=== PATIENT | female | born 2000 | race Caucasian/White ===

== ENCOUNTER → 2019-03-26 11:30 | Outpatient (BNVA) | payer BC, MEDICAID, SELFPAY | PROVIDERS: Visit Provider Obstetrics & Gynecology | DX: Z34.01 Encounter for supervision of normal first pregnancy, first trimester (principal) | CPT/HCPCS: 80307; 84315; 85027; 86592; 86762; 86803; 86850; 86900; 87086; 87340 ==

== ENCOUNTER → 2019-04-20 11:47 | Outpatient (BNVA) | payer BC, SELFPAY | PROVIDERS: Visit Provider Obstetrics & Gynecology | DX: Z34.01 Encounter for supervision of normal first pregnancy, first trimester (principal) | CPT/HCPCS: 84315; 87491; 87591 ==

== ENCOUNTER → 2019-05-26 08:14 | Outpatient (BNVA) | payer MEDICAID, SELFPAY | PROVIDERS: Referring Provider Obstetrics & Gynecology; Visit Provider Obstetrics & Gynecology | DX: Z36.89 Encounter for other specified antenatal screening (principal); Z3A.19 19 weeks gestation of pregnancy; O32.1XX0 Maternal care for breech presentation, not applicable or unspecified | CPT/HCPCS: 76805 ==

== ENCOUNTER → 2019-06-02 09:18 | Outpatient (BNVA) | payer MEDICAID, SELFPAY | PROVIDERS: Visit Provider Obstetrics & Gynecology | DX: Z01.89 Encounter for other specified special examinations (principal) | CPT/HCPCS: 84315 ==

== ENCOUNTER → 2019-06-24 10:42 | Outpatient (BNVA) | payer MEDICAID, SELFPAY | PROVIDERS: Visit Provider Obstetrics & Gynecology | DX: Z34.02 Encounter for supervision of normal first pregnancy, second trimester (principal); Z04.89 Encounter for examination and observation for other specified reasons | CPT/HCPCS: 81000 ==

== ENCOUNTER → 2019-07-08 08:06 | Outpatient (BNVA) | payer BC, MEDICAID, SELFPAY | PROVIDERS: Visit Provider Obstetrics & Gynecology | DX: Z36.89 Encounter for other specified antenatal screening (principal); Z3A.27 27 weeks gestation of pregnancy | CPT/HCPCS: 76816 ==

== ENCOUNTER → 2019-07-21 10:07 | Outpatient (BNVA) | payer MEDICAID, SELFPAY | PROVIDERS: Visit Provider Obstetrics & Gynecology | DX: Z34.03 Encounter for supervision of normal first pregnancy, third trimester (principal); Z04.89 Encounter for examination and observation for other specified reasons | CPT/HCPCS: 81000; 82950; 85027 ==

== ENCOUNTER → 2019-08-04 08:45 | Outpatient (BNVA) | payer MEDICAID, SELFPAY | PROVIDERS: Visit Provider Obstetrics & Gynecology | DX: Z34.02 Encounter for supervision of normal first pregnancy, second trimester (principal) | CPT/HCPCS: 81000 ==

== ENCOUNTER → 2019-08-18 10:00 | Outpatient (BNVA) | payer MEDICAID, SELFPAY | PROVIDERS: Visit Provider Obstetrics & Gynecology | DX: O99.013 Anemia complicating pregnancy, third trimester (principal) | CPT/HCPCS: 81000 ==

== ENCOUNTER → 2019-09-01 09:59 | Outpatient (BNVA) | payer MEDICAID, SELFPAY | PROVIDERS: Visit Provider Obstetrics & Gynecology | DX: Z34.02 Encounter for supervision of normal first pregnancy, second trimester (principal) | CPT/HCPCS: 81000 ==

== ENCOUNTER → 2019-09-15 09:25 | Outpatient (BNVA) | payer BC, MEDICAID, SELFPAY | PROVIDERS: Visit Provider Obstetrics & Gynecology | DX: Z34.90 Encounter for supervision of normal pregnancy, unspecified, unspecified trimester (principal) | CPT/HCPCS: 81000; 87081 ==

== ENCOUNTER → 2019-09-23 07:56 | Outpatient (BNVA) | payer MEDICAID, SELFPAY | PROVIDERS: Visit Provider Nurse Practitioner Women's Health | DX: Z34.90 Encounter for supervision of normal pregnancy, unspecified, unspecified trimester (principal) | CPT/HCPCS: 81000 ==

== ENCOUNTER → 2019-09-30 10:18 | Outpatient (BNVA) | payer BC, MEDICAID, SELFPAY | PROVIDERS: Visit Provider Obstetrics & Gynecology | DX: O98.813 Other maternal infectious and parasitic diseases complicating pregnancy, third trimester; O99.013 Anemia complicating pregnancy, third trimester; Z3A.38 38 weeks gestation of pregnancy | CPT/HCPCS: 81000 ==

== ENCOUNTER → 2019-10-06 08:41 | Outpatient (BNVA) | payer BC, MEDICAID, SELFPAY | PROVIDERS: Visit Provider Obstetrics & Gynecology | DX: O99.013 Anemia complicating pregnancy, third trimester (principal); Z3A.39 39 weeks gestation of pregnancy | CPT/HCPCS: 81000 ==

== ENCOUNTER 2019-10-09 19:09 | Inpatient (IN) | payer BC, MEDICAID, SELFPAY ==
[2019-10-09] VITALS (17 sets, daily range): BP systolic 0–139; BP diastolic 0–72; PULSE 81–120; RESP 17–18; TEMP 36.7–37.1; BMI 30.5
[2019-10-09 20:56] LABS: Basophils # 0.1 10^3/uL (0.0-0.1); Basophils % 0.5 %; Eosinophils # 0.1 10^3/uL (0.0-0.8); Eosinophils % 0.8 %; Hematocrit 29.9 % (37.0-47.0); Hemoglobin 9.5 g/dL (11.5-15.3); Lymphocytes # 2.2 10^3/uL (1.5-6.5); Lymphocytes % 17.4 %; Mean Corpuscular HGB Conc 31.8 g/dL (30.0-36.0); Mean Corpuscular Hemoglobin 27.5 pg (28.0-34.0); Mean Corpuscular Volume 86.7 fL (81-99); Mean Platelet Volume 9.2 fL (7.4-10.4); Monocytes % 7.8 %; Neutrophils # 9.17 10^3/uL (1.8-8.0); Neutrophils % 72.7 %; Nucleated Red Blood Cells % 0 %; Platelet Count 373 10^3/cmm (130-400); Red Blood Count 3.45 10^6/uL (4.1-5.3); Red Cell Distribution Width 12.8 % (12.1-15.1); White Blood Count 12.6 10^3/uL (4.5-13.0)
[2019-10-09] MEDS: lactated ringers 1,000 ML 999 ML IV (21:00)
[2019-10-09] MEDS: ampicillin 2,000 MG in sodium chloride 0.9% (plus) 50 ML 100 MG IV (21:37)
[2019-10-09] MEDS: oxytocin 30 UNIT/500 ML BAG IV (22:24)
[2019-10-10] VITALS (147 sets, daily range): BP systolic 0–187; BP diastolic 0–115; PULSE 65–138; RESP 12–18; TEMP 36.5–37; O2SAT 86–99
[2019-10-10] MEDS: ampicillin 1,000 MG in sodium chloride 0.9% (plus) 50 ML 100 MG IV ×5 (00:57→17:26)
[2019-10-10] MEDS: lactated ringers 1,000 ML 100 ML IV ×2 (03:35→21:30)
[2019-10-10] MEDS: oxytocin 30 UNIT/500 ML BAG IV (08:10)
[2019-10-10] MEDS: lactated ringers 1,000 ML 999 ML IV ×2 (12:40→18:55)
--- NOTE | 2019-10-10 13:59 | P.ANESASSM_ITS ---
Pre-Anesthetic Assessment Pre-Anesthetic Assessment: Height/Weight: Height 1.7 m Weight 88.451 kg Temp Pulse Resp BP 98.2 F 86 16 135/82 10/10/19 11:25 10/10/19 13:48 10/10/19 11:25 10/10/19 13:48 Preop Diagnosis: labor Proposed Procedure: epidural Was Beta Chantell taken within 24 hours: N/A Last Intake: 07:00 Social: Social History: No alcohol and No tobacco Exam: Pre-Anes Outpt Exam: alert, oriented x 3, clear to auscultation bilaterally and regular rate & rhythm Airway: Submandibular: WNL Cervical ROM: WNL MP: 1 Dentition: Full Pulmonary: Pulmonary: None reported CV/HEM: CV/HEM: None reported : : None reported Hepatic: Hepatic: None reported GI: GI: None reported Metabolic: Metabolic: None reported Musc/skel: Musc/skel: None reported Neuropsych: Neuropsych: None reported Anesthetic Plan: ASA status: 2 Anesthesia: Anesthesia Evaluation, Eval. for regional block and Regional (specify below) (epidural) Risk of > 500 ml blood loss (7ml/kg in children): No Meds/Allergies Current Medications: Current Medications Generic Name Dose Route Start Last Admin Trade Name Freq PRN Reason Stop Dose Admin Ampicillin Sodium 1,000 mg/ 50 mls @ 100 mls/ hr 10/10/19 00:15 10/10/19 13:09 Sodium Chloride IV Infused Q4H DONTAE Infusion Protocol Ampicillin Sodium 2,000 mg/ 50 mls @ 100 mls/ hr 10/09/19 20:15 10/09/19 21:37 Sodium Chloride IV 100 mls/hr ONCE DONTAE Administration Protocol Lactated Ringer's 1,000 mls @ 100 m ls/hr 10/09/19 20:45 10/10/19 12:40 Lactated Ringers IV 999 mls/hr .Q10H PRN Administration LABOR INDUCTION Oxytocin 30 unit in 500 ml s @ 1 mls/hr 10/10/19 08:00 10/10/19 12:50 Pitocin IV 24 milliunit/min .Q24H DONTAE 24 mls/hr Titration Protocol 1 MILLIUNIT/MIN PFSH Anesthesia PFSH: Medical History No pertinent past medical history Denies diabetes, asthma, hypertension, seizures, DVT/PE. PMD: None Surgical History No pertinent past surgical history Family History Grandmother Breast cancer maternal-diagnosed in her 50s Family/Other No problems noted. 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 Reproductive History: : 1 Data Anesthesia CBC & Chem 7: 10/09/19 20:30 Other Labs: Laboratory Results - last 48 hr 10/09/19 10/09/19 20:30 20:30 WBC 12.6 RBC 3.45 L Hgb 9.5 L Hct 29.9 L MCV 86.7 MCH 27.5 L MCHC 31.8 RDW 12.8 Plt Count 373 MPV 9.2 Neut % (Auto) 72.7 Lymph % (Auto) 17.4 [place] % (Auto) 7.8 Eos % (Auto) 0.8 Baso % (Auto) 0.5 Neut # (Auto) 9.17 H Lymph # (Auto) 2.2 [place] # (Auto) 1.0 H Eos # (Auto) 0.1 Baso # (Auto) 0.1 Nucleated RBC % (auto) 0 Nucleated RBCs # 0.0 Blood Type A Positive Rho(D) Type Positive Antibody Screen Negative Cardiac Studies: No Data to Display
[2019-10-10] MEDS: lactated ringers 1,000 ML 500 ML IV (14:28)
--- NOTE | 2019-10-10 14:31 | ANES.PROC ---
Anesthesia Procedures Procedure/Date: 10/10/19 Epidural: Time Out Performed: Yes Consents Signed: Procedure Consent Consent: requested by attending/covering physician, from patient, risks and benefits reviewed and patient agrees to proceed Lumbar Level: L3-L4 Epidural position: sitting Epidural procedure: sterile prep of area (betadine), 1% lidocaine to numb the area (3ml), 18 g needle, neg for paresthesia, test dose given, 1.5% xylocaine 1:200k epi (5ml), 0.2% Ropivacaine bolus ml (5ml), placed PCEA, no systemic response, sterile dressing applied, L.U.D. no apparent complications and 0.2% Ropiavacaine @ mls/hr (13ml/hr)
--- NOTE | 2019-10-10 18:33 | PC.NURSE ---
Contacted Will Smart
--- NOTE | 2019-10-10 18:34 | PC.NURSE ---
Contacted Will Smart in anesthesia, regarding patient's epidural not working well. Will states he will be up here shortly.
[2019-10-10] MEDS: ondansetron 2 mg/ML SDV 2 mL 4 MG IVP (18:54)
--- NOTE | 2019-10-10 19:34 | P.ANES_ITS ---
Anesthesia Procedures Procedure/Date: 10/10/19 Epidural bolus Procedure Narrative: * Called to [facility] and pt complaining of pain with contractions. Pt given 5ml 2% MPF Lidocaine and 100mcg Fentanyl MPF via epidural. Pt with next 3 contractions on monitor and pt states much improvement in pain. Pt states mostly pressure now. Will continue to monitor
[2019-10-10] MEDS: lactated ringers 1,000 ML 125 ML IV (21:51)
[2019-10-10] MEDS: carboprost tromethamine 250 mcg/mL Amp IM (22:14)
--- NOTE | 2019-10-10 22:34 | P.PCNOB_ITS ---
Delivery Note: Date of delivery: October 10, 2019 Delivery: - PRE-DELIVERY DIAGNOSIS: 19-year-old 1 para 0 at 39 weeks and 4 days gestation Anemia on iron Elective induction of labor GBS positive POST-DELIVERY DIAGNOSIS: Vaginal delivery on 10/10/2019 Anemia on iron PROCEDURE: Vaginal delivery on 10/10/2019 ANESTHESIA: Epidural anesthesia, local anesthesia with 2% lidocaine DELIVERING PHYSICIAN: Jaya Buckley FACOG PRE-DELIVERY COURSE: Ms. Rao is a 19-year-old 1 para 0 who presented to labor and delivery on 10/09/2019 at 39 weeks and 3 days gestation for elective cervical ripening at 8 PM. History was significant for anemia on iron and she was GBS positive. She was started on antibiotics for GBS prophylaxis. On initial exam she was noted to be 2 cm, 50% and -2 station and was shad every 2 to 7 minutes. She initially made no cervical change and as a result induction was started with Pitocin at 10:30 PM titrated to a maximum of 6 mIU. She was comfortable with a category 1 tracing and made minimal cervical change to 2 to 3 cm, 50% and -2 station at 6 AM. Pitocin was turned off she was given a therapeutic break and Pitocin was restarted at about 8:30 AM titrated to a maximum of 24 mIU. With this she started to have some more cervical change. Artificial rupture of membranes was performed at 11 AM at which time she was noted to be 4 cm, 50% and -2 station, cephalic. She grew uncomfortable after this and an epidural was placed. She was 6 cm at 3:30 AM and had made minimal change by 6 PM. She was continued to be observed and was 8 cm at 7 PM and fully dilated at 8:10 PM and +1 station. She was allowed to labor down for about 30 minutes and was then set up in lithotomy position at 9 PM and ready to push. tracing thus far was category 1. DELIVERY NOTE: She was set up in lithotomy position and was pushing effectively. She was noted to be +3 station and was pushing however was feeling very lightheaded and was not pushing very well. The head was a +3 to station. An episiotomy right mediolateral was done after infiltrating this area with 2% lidocaine. With this and the next push The head delivered in YA position, no nuchal cord was present. The shoulders and rest of the body followed with her next push and Ayala and suprapubic pressure was given as well prophylactically. The baby's mouth and nose were suctioned and the baby was placed on the mother's belly. Once cord pulsations stopped the cord was clamped and cut. The placenta delivered spontaneously intact with membranes and was discarded. The fundus was noted to be bulky and she was bleeding and she was given a single dose of Hemabate intramuscularly and uterine massage was continued after which the fundus was firm and well contracted. The vagina and cervix were inspected and no cervical or sulcal lacerations were noted. The only tear was the second degree right mediolateral episiotomy without any extensions. This was repaired in the usual fashion with 3-0 Vicryl on a CT1 needle. Good reapproximation and hemostasis was obtained. Baby boy, Yonis born at 10:06 PM on 10/10/2019 with 8/9, weighing 3915 g, 8 pounds 10 ounces, 21 inches long. Placenta was delivered spontaneously intact with membranes at 20 2:11 PM. Cotyledons were intact , centrally inserted umbilical cord with 3 vessels noted. Estimated blood loss 400 mL. Complications-none, both baby and mother were left to recovery in a stable condition. Coding Level of Care Code Acute Personal Security Specialist for Chg Fwd History History History 1 Term 1 Miscarriages/Ectopic 0 0 Living Children 1 Other History: - 1----> 10/10/2019---> full-term vaginal delivery at 39 weeks and 4 days gestation, induction of labor-12 hr induction. Baby boy Yonis weighing 8 pounds 10 ounces, [address] Buckley at [facility] [place]. Right mediolateral episiotomy. Anemia in and GBS positive.
[2019-10-10] MEDS: oxytocin 30 UNIT/500 ML BAG 600 UNIT IV (22:35)
[2019-10-11] VITALS (7 sets, daily range): BP systolic 109–151; BP diastolic 63–94; PULSE 52–109; RESP 16–20; TEMP 36.4–37
[2019-10-11] MEDS: HYDROcodone-acetaminophen 5-325 mg Tablet PO (00:48)
[2019-10-11] MEDS: lanolin oint 7 gm 1 APPLIC TOPICAL (00:48)
[2019-10-11] MEDS: benzocaine-menthol 78 gm Canister 1 SPRAY TOPICAL (00:49)
[2019-10-11] MEDS: ferrous sulfate EC 325 mg Tablet PO ×2 (08:06→21:33)
[2019-10-11] MEDS: docusate sodium 100 mg Capsule PO ×2 (08:06→21:33)
[2019-10-11] MEDS: prenatal vitamin Capsule 1 CAP PO (08:06)
[2019-10-11 10:35] LABS: Hematocrit 23.7 % (37.0-47.0); Hemoglobin 7.6 g/dL (11.5-15.3); Mean Corpuscular HGB Conc 32.1 g/dL (30.0-36.0); Mean Corpuscular Volume 87.5 fL (81-99); Mean Platelet Volume 9.1 fL (7.4-10.4); Platelet Count 301 10^3/cmm (130-400); Red Blood Count 2.71 10^6/uL (4.1-5.3); Red Cell Distribution Width 12.8 % (12.1-15.1); White Blood Count 19.2 10^3/uL (4.5-13.0)
--- NOTE | 2019-10-11 12:38 | PM.PN ---
Subjective Subjective: Interval history: SUBJECTIVE: Ms. Miguel is doing well today. She is a little sore but reports that pain is well controlled with as needed medication. She is breast-feeding and bonding well with her son. She desires him to have a circumcision. She denies heavy bleeding, abdominal pain, fever, chills, shortness of breath, nausea, vomiting. She denies any dizziness on ambulation for chest pain or shortness of breath. She is overall feeling pretty good. OBJECTIVE/PHYSICAL EXAM: Gen.: No acute distress Heart: S1-S2 heard, regular rate and rhythm Lungs: Clear to auscultation bilaterally Abdomen: Soft, fundus firm below umbilicus, Legs: No calf tenderness, trace bilateral pitting pedal edema. ASSESSMENT AND PLAN: 19-year-old 1 para 1-0-0-1 status post vaginal delivery on 10/10/2019, day #1 -Continue routine care-p.o. pain medications as needed -Perineal care, sitz baths ice packs as needed -Encourage ambulation - consult -Anticipate discharge home tomorrow as she is going to need another stay overnight for recovery after delivery -Patient counseled about circumcision consents were signed and circumcision to be done today. Vitals/I&O/Wt Last Vital Signs Temp 98.4 F 10/11/19 08:09 Pulse 88 10/11/19 08:09 Resp 16 10/11/19 08:09 BP 109/63 10/11/19 08:09 Pulse Ox 97 10/10/19 14:19 10/10/19 10/11/19 10/11/19 22:59 06:59 14:59 Intake Total 1384.0 / 3461.500 400 / 3861.500 Output Total 500 / 500 1000 / 1500 Balance 884.0 / 2961.500 -600 / 2361.500 Weight last 48 hrs Weight 195 lb Physical Exam Urinary Catheter Management^: Felton: Cath Placed During This Visit: yes Reason for Continuing Indwelling Catheter: Required Immobilization for Trauma or Surgery or Anesthesia Urinary Catheter Date of Insertion: 10/10/19 Urinary Catheter Time of Insertion: 14:48 Data : 10/11/19 10:18 Attestations Medical Necessity Statement*: Patient needs to stay for 1 or 2 more nights to recover from delivery Coding Level of Care Code Acute Pie Cutter for g Elizabeth
[2019-10-12 04:00] VITALS: BP 108/65; PULSE 76; RESP 16; TEMP 36.6
[2019-10-12] MEDS: docusate sodium 100 mg Capsule PO (08:52)
[2019-10-12] MEDS: prenatal vitamin Capsule 1 CAP PO (08:52)
[2019-10-12] MEDS: ferrous sulfate EC 325 mg Tablet PO (08:52)
[2019-10-12 10:08] VITALS: BP 119/73; PULSE 76; RESP 18; TEMP 36.7; O2SAT 98
--- NOTE | 2019-10-12 11:48 | P.DS_ITS ---
Discharge Providers Date of Admission: 10/10/19 22:00 Date of Discharge: October 12, 2019 Attending Provider at Admission: Jaya Thorpe MD Attending Provider at Discharge: Jaya Thorpe MD Primary Care Provider: Jaya Thorpe MD Hospital Course Discharge Summary: PRE-DELIVERY DIAGNOSIS: 19-year-old 1 para 0 at 39 weeks and 4 days gestation Anemia on iron Elective induction of labor GBS positive POST-DELIVERY DIAGNOSIS: Vaginal delivery on 10/10/2019 Anemia on iron PROCEDURE: Vaginal delivery on 10/10/2019 ANESTHESIA: Epidural anesthesia, local anesthesia with 2% lidocaine DELIVERING PHYSICIAN: Jaya Buckley FACOG PRE-DELIVERY COURSE: Ms. Rao is a 19-year-old 1 para 0 who presented to labor and delivery on 10/09/2019 at 39 weeks and 3 days gestation for elective cervical ripening at 8 PM. History was significant for anemia on iron and she was GBS positive. She was started on antibiotics for GBS prophylaxis. On initial exam she was noted to be 2 cm, 50% and -2 station and was shad every 2 to 7 minutes. She initially made no cervical change and as a result induction was started with Pitocin at 10:30 PM titrated to a maximum of 6 mIU. She was com fortable with a category 1 tracing and made minimal cervical change to 2 to 3 cm, 50% and -2 station at 6 AM. Pitocin was turned off she was given a therapeutic break and Pitocin was restarted at about 8:30 AM titrated to a maximum of 24 mIU. With this she started to have some more cervical change. Artificial rupture of membranes was performed at 11 AM at which time she was noted to be 4 cm, 50% and -2 station, cephalic. She grew uncomfortable after this and an epidural was placed. She was 6 cm at 3:30 AM and had made minimal change by 6 PM. She was continued to be observed and was 8 cm at 7 PM and fully dilated at 8:10 PM and +1 station. She was allowed to labor down for about 30 minutes and was then set up in lithotomy position at 9 PM and ready to push. tracing thus far was category 1. DELIVERY NOTE: She was set up in lithotomy position and was pushing effectively. She was noted to be +3 station and was pushing however was feeling very lightheaded and was not pushing very well. The head was a +3 to station. An episiotomy right mediolateral was done after infiltrating this area with 2% lidocaine. With this and the next push The head delivered in YA position, no nuchal cord was present. The shoulders and rest of the body followed with her next push and Ayala and suprapubic pressure was given as well prophylactically. The baby's mouth and nose were suctioned and the baby was placed on the mother's belly. Once cord pulsations stopped the cord was clamped and cut. The placenta delivered spontaneously intact with membranes and was discarded. The fundus was noted to be bulky and she was bleeding and she was given a single dose of Hemabate intramuscularly and uterine massage was continued after which the fundus was firm and well contracted. The vagina and cervix were inspected and no cervical or sulcal lacerations were noted. The only tear was the second degree right mediolateral episiotomy without any extensions. This was repaired in the usual fashion with 3-0 Vicryl on a CT1 needle. Good reapproximation and hemostasis was obtained. Baby boy, Yonis born at 10:06 PM on 10/10/2019 with 8/9, weighing 3915 g, 8 pounds 10 ounces, 21 inches long. Placenta was delivered spontaneously intact with membranes at 20 2:11 PM. Cotyledons were intact , centrally inserted umbilical cord with 3 vessels noted. Estimated blood loss 400 mL. Complications-none, both baby and mother were left to recovery in a stable condition. HOSPITAL COURSE: She underwent an uncomplicated vaginal delivery on 10/10/2019. She did well on day 0 and was ambulating well, tolerating regular diet, voiding freely, passing flatus. She was breast-feeding without difficulty and bonding well with her son. Circumcision was performed on him on day of life 1 per her request without any difficulty. Pain was well-controlled with by mouth pain medication. She denied nausea, vomiting, fever, chills, shortness of breath, leg pain. She had moderate vaginal bleeding. On day # 1 she continued to do well with stable vital signs and stable hemoglobin at 7.8. She was asymptomatic and denied any orthostatic symptoms. She continued to do well on day #2 with stable vital signs.. She was discharged home on day 2 in a stable condition. Warning signs for endometritis, mastitis, DVT/PE were reviewed with her. Post delivery activity restrictions were also reviewed with her at all her questions were answered to her satisfaction. Plans on using Micronor for contraception and this will be prescribed to her at her visit. EXAM AT DISCHARGE: Gen.: No acute distress Heart: S1-S2 heard, regular rate and rhythm Lungs: Clear to auscultation bilaterally Abdomen: Soft, fundus firm below umbilicus, . Legs: No calf tenderness, trace bilateral pitting pedal edema. CONDITION AT DISCHARGE: Stable Physical Exam Urinary Catheter Management^: Felton: Cath Placed During This Visit: yes Reason for Continuing Indwelling Catheter: Required Immobilization for Trauma or Surgery or Anesthesia Urinary Catheter Date of Insertion: 10/10/19 Urinary Catheter Time of Insertion: 14:48 Discharge Data Vitals: Last Vital Signs Temp 98.0 F 10/12/19 10:08 Pulse 76 10/12/19 10:08 Resp 18 10/12/19 10:08 BP 119/73 10/12/19 10:08 Pulse Ox 98 10/12/19 10:08 Discharge Plan Discharge Patient Disposition: Home Condition: Stable Prescriptions: New ibuprofen 800 mg tablet 800 mg PO Q8H Qty: 30 RF: 0 hydrocodone-acetaminophen 5-325 mg tablet 1 tab PO Q6H Qty: 15 RF: 0 docusate sodium 100 mg Capsule 100 mg PO BID PRN (Reason: constipation) Qty: 30 RF: 0 Continued prenat.vits,esteban,[id number] Tablet 1 tab PO DAILY RF: 0 ferrous sulfate 325 mg (65 mg iron) tablet,delayed release (DR/EC) 325 mg PO BID RF: 0 Discharge Orders: Discharge Order (Routine); Ordered 10/12/19 Ordered By: Jaya Thorpe Referrals: Jaya Thorpe MD [Primary Care Provider] - 11/30/19 10:30 am (6 week visit) Discharge Diet: Usual diet Patient Instructions: Hydrocodone/Acetaminophen (By mouth), Ibuprofen (By mouth), Laxative, Stool Softeners (By mouth), Perineal Care (GEN), Your Baby (GEN), Expression, Collection and Storage of Breastmilk (GEN), How to Hold and Breastfeed Your Baby (GEN), How to Increase Your Milk Supply (GEN), How to Tell if Your Baby is Getting Enough Breast Milk (GEN), and Your Diet (GEN), Breast Care for the Breast Feeding Mother (GEN), Caring for Your Breastfed Baby (GEN), OB Discharge Report, OB Food/Drug Interaction Guide, OB Vaginal Deliveries - [facility] Activity Restrictions/Additional Instructions: pelvic rest and no healvy lifting x 6 weeks Discharge Attestations Time Spent in Discharge Care*: greater than 30 min Quality Metrics Clinical Quality Measures During this hospital stay, did patient experience: None Coding Level of Care Code Acute Furniture Repair Technician for Markel Johnson
[2019-10-12 12:19] VITALS: BP 109/75; PULSE 87; RESP 18; TEMP 36.5; O2SAT 100
== END 2019-10-12 12:55 | disposition home or self-care (01) | DRG 807 ==
PROVIDERS: Admitting Provider Obstetrics & Gynecology; PCP Obstetrics & Gynecology; Visit Provider Obstetrics & Gynecology
DX: O99.824 Streptococcus B carrier state complicating childbirth (principal); Z37.0 Single live birth; Z3A.39 39 weeks gestation of pregnancy; O99.02 Anemia complicating childbirth; D64.9 Anemia, unspecified; O70.1 Second degree perineal laceration during delivery
CPT/HCPCS: 12345; 36415; 51702; 59025; 59409; 85025; 85027; 86850; 86900; 96372; 96374; 96375; G0378; G0379; J0290; J2405; J2795; J3010

== ENCOUNTER 2022-05-06 22:00 | Outpatient (CLI) | payer BC, MEDICAID, SELFPAY ==
[2022-05-06] VITALS (7 sets, daily range): BP systolic 124–146; BP diastolic 58–88; PULSE 85–96; BMI 35.9
== END 2022-05-06 23:58 | disposition home or self-care (01) ==
LOC: OPOB 22:08 → OBGYN 22:09
PROVIDERS: Visit Provider Family Medicine
DX: O26.899 Other specified pregnancy related conditions, unspecified trimester (principal); Z3A.00 Weeks of gestation of pregnancy not specified; R10.9 Unspecified abdominal pain
CPT/HCPCS: 59025; 99211

== ENCOUNTER 2022-05-07 12:04 | Inpatient (IN) | payer BC, MEDICAID, SELFPAY ==
[2022-05-07] VITALS (57 sets, daily range): BP systolic 116–180; BP diastolic 53–97; PULSE 78–107; RESP 16–18; TEMP 35.9–36.8; O2SAT 94–98; BMI 35.4
[2022-05-07 11:48] LABS: Nitrazine Paper, PH Positive
[2022-05-07] MEDS: miSOPROStol 100 mcg tablet 25 MCG SUBLINGUAL (13:33)
[2022-05-07 13:36] LABS: Basophils # 0.1 10^3/uL (0.0-0.1); Basophils % 0.4 %; Eosinophils # 0.1 10^3/uL (0.0-0.8); Eosinophils % 0.5 %; Hematocrit 31.4 % (37.0-47.0); Hemoglobin 9.7 g/dL (11.5-15.3); Lymphocytes # 1.8 10^3/uL (0.8-4.8); Lymphocytes % 15.3 %; Mean Corpuscular HGB Conc 30.9 g/dL (30.0-36.0); Mean Corpuscular Hemoglobin 25.5 pg (28.0-34.0); Mean Corpuscular Volume 82.4 fl (81-99); Mean Platelet Volume 9.7 fL (7.4-10.4); Monocytes # 0.7 10^3/uL (0.2-0.9); Monocytes % 6.3 %; Neutrophils # 8.96 10^3/uL (1.8-7.7); Neutrophils % 76.5 %; Nucleated Red Blood Cells % 0 %; Platelet Count 308 10^3/cmm (130-400); Red Blood Count 3.81 10^6/uL (4.1-5.3); Red Cell Distribution Width 14.2 % (12.1-15.1); White Blood Count 11.7 10^3/uL (4.0-10.0)
[2022-05-07 14:57] LABS: Amphetamines Screen Urine Negative (Negative); Barbiturates Screen Urine Negative (Negative); Benzodiazepines Screen Urine Negative (Negative); Cocaine Screen Urine Negative (Negative); Opiate Screen Urine Negative (Negative); PCP Screen Urine Negative (Negative); THC Screen Urine Negative (Negative)
[2022-05-07] MEDS: lactated ringers 1,000 ML 999 ML IV ×2 (16:02→17:08)
--- NOTE | 2022-05-07 17:15 | P.ANESASSM_ITS ---
Pre-Anesthetic Assessment Height/Weight: Height 1.7 m Weight 102.512 kg Temp Pulse Resp BP Pulse Ox O2 Del Method 98.1 F 95 18 131/77 98 05/07/22 15:56 05/07/22 17:10 05/07/22 15:56 05/07/22 17:10 05/07/22 16:59 05/07/22 12:29 Preop Diagnosis: labor Epidural Familial anesthetic complications: None Was Beta Chantell taken within 24 hours: N/A Was Clonidine taken within 24 hours: N/A Last intake: eating ice chips Social No alcohol and No tobacco Exam alert, oriented x 3, clear to auscultation bilaterally and regular rate & rhythm Airway Mallampati: Class III Dentition: full CV/HEM Anemia Metabolic Morbid Obesity Anesthetic Plan ASA status: 3 Anesthesia: Regional (specify below) (epidural) Risk of > 500 ml blood loss (7ml/kg in children): No Medications/Allergies Home Medications Medication Instructions Recorded Confirmed Last Taken Type prenat.vits,esteban,yvt-fgud-lrxvw 1 tab PO DAILY 03/23/19 05/07/22 05/05/22 History 1 tab Allergies Allergy/AdvReac Type Severity Reaction Status Date / Time cetirizine [From [facility]] Allergy Throat Verified 10/06/19 08:50 swelling Current Medications Generic Name Dose Route Start Last Admin Trade Name Freq PRN Reason Stop Dose Admin Lactated Ringer's 1,000 mls @ 999 mls/hr 05/07/22 12:03 05/07/22 16:02 Lactated Ringers IV 999 mls/hr .Q1H1M PRN Administration Per L&D Rescitation Protocol Ropivacaine 200 mg in 100 mls @ 13 mls/hr 05/07/22 16:00 05/07/22 17:09 Naropin Premix EPIDURAL 13 mls/hr .Q7H42M DONTAE Administration Lactated Ringer's 1,000 mls @ 999 mls/hr 05/07/22 15:57 05/07/22 17:08 Lactated Ringers IV 999 mls/hr .Q1H1M PRN Administration See label comments [facility] Anesthesia Medical History No pertinent past medical history Denies diabetes, asthma, hypertension, seizures, DVT/PE. PMD: None Surgical History No pertinent past surgical history Family History Grandmother Breast cancer maternal-diagnosed in her 50s Family/Other No problems noted. 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
--- NOTE | 2022-05-07 17:16 | ANES.PROC ---
Anesthesia Procedures Procedure/Date: 05/07/22 Epidural: Time Out Performed: Yes Consents Signed: Procedure Consent Consent: requested by attending/covering physician, from patient, from other, risks and benefits reviewed and patient agrees to proceed Lumbar Level: L3-L4 Epidural position: sitting Epidural procedure: sterile prep of area, 1% lidocaine to numb the area, 18 g needle, negative for paresthesia passed, neg for paresthesia, test dose given, 1.5% xylocaine 1:200k epi ( cc), 0.2% Ropivacaine bolus ml (5 mg), placed PCEA, no systemic response, sterile dressing applied, L.U.D. no apparent complications and 0.2% Ropiavacaine @ mls/hr (13) Additional Comments: DANYEL at 5 cm, threaded to 11 cm, pain free subsequent contraction
[2022-05-07] MEDS: oxytocin 30 UNIT/500 ML BAG IV (17:45)
--- NOTE | 2022-05-07 19:25 | PM.OPHPUD ---
Labor & Delivery H&P Update Date of Procedure: May 07, 2022 Date H&P Performed: 05/03/22 Changes to previous documentation: 1. Ruptured membranes 2. Cervical change Admission Diagnosis: The patient is a 21-year-old 2 para 1-0-0-1 at 40 weeks estimated gestational age presenting with spontaneous rupture of membranes. Preop diagnosis: labor Other information: The patient has had an unremarkable . Her membranes continuously ruptured prior to coming to the hospital. She was noted to have meconium. Otherwise her baby had a reactive strip, and she was not having any contractions that she could feel upon arrival at the hospital. She was having very little amniotic fluid leakage, and she was noted to have a fore bag. As result I performed an amniotomy, and Cytotec was placed. The patient has had an unremarkable . Her labs are as follows. Her blood type is a positive. Her antibody screen was negative. She is rubella immune. Her glucose screen was negative. The remainder of her infectious disease profile was within normal limits. Related Problem List Diagnoses (1) 40 weeks gestation of : A&P Assessment and plan (1) 40 weeks gestation of : I anticipate routine labor. Status: Acute
--- NOTE | 2022-05-07 19:48 | PM.DELIVERY ---
Delivery Note: Date of delivery: May 07, 2022 Pre-delivery diagnoses: 21-year-old 2 para 1-0-0-1 at 40 weeks estimated gestational age presenting with spontaneous rupture membranes Post-delivery diagnoses: Status post spontaneous vaginal delivery Procedure: Spontaneous vaginal delivery Estimated blood loss (mL): 100 Pre-Delivery Course: Patient presented to the hospital with spontaneous rupture of membranes. There were noted to be grossly ruptured. A fore bag was noted and an amniotomy was performed. Meconium was noted. Cytotec was placed. The patient's contractions gradually increased. She desired an epidural and 1 was given. Pitocin was added because her cervical change was minimal. She then progressed to complete without difficulty.. Delivery: DELIVERY: The patient progressed to complete without difficulty. She delivered a female with a weight of 8 pounds 8 ounces with Apgars of 8, 9. The baby was delivered from the YA position. and placed on the mother's abdomen. The cord was then clamped and cut about 1 minute after delivery. There was no nuchal cord. Meconium was noted. The placenta and 3 vessel cord were delivered intact shortly thereafter. The placenta was said to have a accessory lobe per ultrasound. As result I carefully examined the placenta and found no abnormalities and all the cotyledons appear to be intact. The perineum and vaginal vault were carefully examined. No lacerations were noted. Both the mother and the baby were in stable condition. Post-Delivery Status: Good History History History 2 Term 2 0 Miscarriages/Ectopic 0 Living Children 2 A&P Assessment and plan (1) Spontaneous vaginal delivery: I anticipate routine care. (2) 40 weeks gestation of : Coding Level of Care Code Acute Code for Chg Fwd Diagnoses Spontaneous vaginal delivery O80 40 weeks gestation of Z3A.40
[2022-05-07] MEDS: ibuprofen 800 mg tablet PO (20:24)
[2022-05-08] VITALS (7 sets, daily range): BP systolic 125–151; BP diastolic 73–91; PULSE 83–118; RESP 15–18; TEMP 36.4–37.3; O2SAT 97
--- NOTE | 2022-05-08 07:47 | PM.OBGYDC ---
Discharge Providers BUSINESS ANALYST INTERN Date of Admission: 05/07/22 12:04 Date of Discharge: 05/08/22 Attending Provider at Admission: Shreyas Sifuentes MD Attending Provider at Discharge: Shreyas Sifuentes MD Diagnoses at Discharge Discharge Diagnosis (1) Spontaneous vaginal delivery: Status: Acute (2) 40 weeks gestation of : Status: Acute Reason for Visit Reason for Visit: PSROM Hospital Course Hospital Course The patient presented to the hospital with spontaneous rupture of membranes. Her labor was augmented with Cytotec and Pitocin. She progressed to complete and had an unremarkable vaginal delivery. Her course was also unremarkable. Her bleeding was within normal limits. Her pain was well controlled. There were no concerns. Information Peripartum Data: Infant Delivery Method: Vaginal Physical Exam Narrative: The patient is alert. She appears comfortable. Her heart has a regular rate and rhythm with no murmurs appreciated. Lungs are clear to auscultation bilaterally. Her fundus is firm and below the umbilicus. Urinary Catheter Management: Felton Latex: Cath Placed During This Visit: yes Reason for Continuing Indwelling Catheter: Required Immobilization for Trauma or Surgery or Anesthesia Urinary Catheter Date of Insertion: 05/07/22 Urinary Catheter Time of Insertion: 17:20 History History History 2 Term 2 0 Miscarriages/Ectopic 0 Living Children 2 Discharge Data Studies Completed and Pending Pending at discharge Category Date Time Status Hemagram Timed Lab 05/08/22 07:55 Uncollected Laboratory Results WBC 11.7 10^3/uL (4.0-10.0) H 05/07/22 12:09 RBC 3.81 10^6/uL (4.1-5.3) L 05/07/22 12:09 Hgb 9.7 g/dL (11.5-15.3) L 05/07/22 12:09 Hct 31.4 % (37.0-47.0) L 05/07/22 12:09 MCV 82.4 fl (81-99) 05/07/22 12:09 MCH 25.5 pg (28.0-34.0) L 05/07/22 12:09 MCHC 30.9 g/dL (30.0-36.0) 05/07/22 12:09 RDW 14.2 % (12.1-15.1) 05/07/22 12:09 Plt Count 308 10^3/cmm (130-400) 05/07/22 12:09 MPV 9.7 fL (7.4-10.4) 05/07/22 12:09 Neut % (Auto) 76.5 % 05/07/22 12:09 Lymph % (Auto) 15.3 % 05/07/22 12:09 Maverick % (Auto) 6.3 % 05/07/22 12:09 Eos % (Auto) 0.5 % 05/07/22 12:09 Baso % (Auto) 0.4 % 05/07/22 12:09 Neut # (Auto) 8.96 10^3/uL (1.8-7.7) H 05/07/22 12:09 Lymph # (Auto) 1.8 10^3/uL (0.8-4.8) 05/07/22 12:09 Maverick # (Auto) 0.7 10^3/uL (0.2-0.9) 05/07/22 12:09 Eos # (Auto) 0.1 10^3/uL (0.0-0.8) 05/07/22 12:09 Baso # (Auto) 0.1 10^3/uL (0.0-0.1) 05/07/22 12:09 Nucleated RBC % (auto) 0 % 05/07/22 12:09 Nucleated RBCs # 0.0 /100WBC 05/07/22 12:09 Urine Opiates Screen Negative ng/mL (Negative) 05/07/22 12:09 Ur Barbiturates Screen Negative ng/mL (Negative) 05/07/22 12:09 Ur Phencyclidine Scrn Negative ng/mL (Negative) 05/07/22 12:09 Ur Amphetamines Screen Negative ng/mL (Negative) 05/07/22 12:09 U Benzodiazepines Scrn Negative ng/mL (Negative) 05/07/22 12:09 Urine Cocaine Screen Negative ng/mL (Negative) 05/07/22 12:09 U Marijuana (THC) Screen Negative ng/mL (Negative) 05/07/22 12:09 Vitals Last Vital Signs Temp 98.4 F 05/08/22 05:45 Pulse 93 05/08/22 05:45 Resp 16 05/08/22 05:45 BP 125/76 05/08/22 05:45 Pulse Ox 98 05/07/22 16:59 O2 Del Method 05/07/22 12:29 Discharge Plan Discharge Patient Disposition: Home Condition: Stable Prescriptions: New ibuprofen 800 mg Tablet 800 mg PO TID Qty: 45 0RF Continued prenat.vits,esteban,nzm-wduk-vhwkl Tablet 1 tab PO DAILY Discharge Orders: Discharge Order (Routine); Ordered 05/08/22 Ordered By: Shreyas Sifuentes Referrals: Shreyas Sifuentes MD [Physician] - 6 Weeks Discharge Diet: Usual diet Discharge Activity: Limit activity as instructed Patient Instructions: Opioid Safety Discharge Attestations BUSINESS ANALYST INTERN Time Spent in Discharge Care*: less than 30 min Coding Level of Care Code Acute Code for Chg Fwd Diagnoses Spontaneous vaginal delivery O80 40 weeks gestation of Z3A.40
--- NOTE | 2022-05-08 08:00 | ANE.PACU2 ---
Inpatient post-anesthesia follow up: Airway intact: Yes Vital signs: Temperature 97.6 F Pulse Rate 118 Respiratory Rate 15 Blood Pressure 128/90 Pulse Oximetry 97 Oxygen Delivery Me thod Room Air Oxygen Flow Rate Fraction of Inspir ed Oxygen Hydration adequate: Yes Nausea and vomiting: No Pain level: 1 Mental status: Baseline
[2022-05-08 08:17] LABS: Hematocrit 29.9 % (37.0-47.0); Hemoglobin 9.3 g/dL (11.5-15.3); Mean Corpuscular HGB Conc 31.1 g/dL (30.0-36.0); Mean Corpuscular Hemoglobin 25.4 pg (28.0-34.0); Mean Corpuscular Volume 81.7 fl (81-99); Mean Platelet Volume 9.3 fL (7.4-10.4); Platelet Count 300 10^3/cmm (130-400); Red Blood Count 3.66 10^6/uL (4.1-5.3); Red Cell Distribution Width 14.2 % (12.1-15.1); White Blood Count 12.7 10^3/uL (4.0-10.0)
[2022-05-08] MEDS: ibuprofen 800 mg tablet PO ×3 (08:44→20:09)
[2022-05-08] MEDS: docusate sodium 100 mg Capsule PO ×2 (08:44→20:09)
[2022-05-08] MEDS: prenatal vitamin Capsule 1 CAP PO (08:44)
[2022-05-08] MEDS: lanolin oint 7 gm 1 APPLIC TOPICAL (08:44)
[2022-05-08] MEDS: iron complex forte Capsule 1 EACH PO ×2 (08:45→20:09)
[2022-05-08 13:56] LABS: Alanine Aminotransferase 8 U/L (0-33); Albumin Level 2.7 g/dL (3.5-5.2); Alkaline Phosphatase 146 U/L (35-105); Anion Gap 13.1 (5-19); Aspartate Amino Transferase 16 U/L (0-32); Blood Urea Nitrogen 6 mg/dL (6-20); Calcium 8.7 mg/dL (8.5-10.5); Carbon Dioxide 23 mmol/L (22-29); Chloride 103 mmol/L (98-107); Globulin 3.3 g/dL (1.3-4.6); Glomerular Filtration Rate 199.6 mL/min (90-130); Glucose 111 mg/dL (65-115); Osmolality Calculated 278 mOsm/kg (285-295); Potassium 4.1 mmol/L (3.5-5.1); Sodium 135 mmol/L (136-145); Total Bilirubin 0.2 mg/dL (0.15-1.2); Uric Acid 4.3 mg/dL (2.4-5.7)
[2022-05-08 14:23] LABS: Urine Creatinine 32 mg/dL (28-217); Urine Protein Random 4 mg/dL
[2022-05-08 14:27] LABS: UPRO/UCREAT Ratio 0.13 mg/mg CR
[2022-05-08 14:35] LABS: Add Urine Microscopic? YES; Bilirubin Urine Neg (Negative); Blood Urine 3+ (Negative); Glucose Urine UA Norm (Normal); Ketones Urine Negative (Negative); Leukocyte Esterase Urine Negative (Negative); Nitrate Urine Negative (Negative); Protein Urine Neg (Negative); Urine Appearance Clear (CLEAR); Urine Color Yellow (Yellow); Urobilinogen Urine Norm (Negative); pH Urine 7 (5-7)
[2022-05-08 14:36] LABS: Add Urine Culture? No; Squamous Epithelial Cell Urine 0-4 /hpf (0-5)
== END 2022-05-08 20:40 | disposition home or self-care (01) | DRG 807 ==
LOC: OPOB 12:04 → OBGYN 12:08
PROVIDERS: Admitting Provider Family Medicine; Visit Provider Family Medicine
DX: O48.0 Post-term pregnancy (principal); Z37.0 Single live birth; Z3A.40 40 weeks gestation of pregnancy; O77.0 Labor and delivery complicated by meconium in amniotic fluid
CPT/HCPCS: 12345; 36415; 51702; 59409; 80053; 80306; 81001; 82570; 83986; 84156; 84550; 85025; 85027; J2590; J2795; J7120

== ENCOUNTER 2024-10-15 15:00 | Outpatient (CLI) | payer BC, MEDICAID, SELFPAY ==
[2024-10-15 15:08] VITALS: BP 130/77; PULSE 111
[2024-10-15 15:24] VITALS: BP 125/72; PULSE 102
[2024-10-15 15:42] LABS: Nitrazine Paper, PH Negative
== END 2024-10-15 15:55 | disposition home or self-care (01) ==
LOC: OPOB 15:04 → OBGYN 15:04
PROVIDERS: PCP Family Medicine; Visit Provider Family Medicine
DX: O26.899 Other specified pregnancy related conditions, unspecified trimester (principal); Z3A.00 Weeks of gestation of pregnancy not specified; R25.2 Cramp and spasm
CPT/HCPCS: 83986

== ENCOUNTER 2024-10-27 14:26 | Inpatient (IN) | payer SELFPAY ==
[2024-10-27] VITALS (43 sets, daily range): BP systolic 119–191; BP diastolic 59–102; PULSE 80–110; RESP 16–17; TEMP 36.7–36.8; O2SAT 96–99; BMI 37.5
[2024-10-27 14:48] LABS: Nitrazine Paper, PH Negative
[2024-10-27 15:11] LABS: Hematocrit 32.2 % (36-47); Hemoglobin 10.50 g/dL (11.27-16.99); Mean Corpuscular HGB Conc 32.6 g/dL (30-55); Mean Corpuscular Hemoglobin 27.0 pg (27-33); Mean Corpuscular Volume 82.8 fl (85-98); Nucleated Red Blood Cells % 0 %; Platelet Count 328 10^3/cmm (157-399); Red Blood Count 3.89 10^6/uL (3.85-5.65); White Blood Count 16.75 10^3/uL (3.29-11.43)
--- NOTE | 2024-10-27 15:54 | P.ANESASSM_ITS ---
Pre-Anesthetic Assessment Height/Weight: Height 1.7 m Weight 108.862 kg Pulse BP Pulse Ox 107 H 140/90 98 10/27/24 15:49 10/27/24 15:49 10/27/24 15:48 Preop Diagnosis: IUP epidural Familial anesthetic complications: none Was Beta Chantell taken within 24 hours: N/A Was Clonidine taken within 24 hours: N/A Last Intake: 20:30 (10/26/24 2030) Social No alcohol and No tobacco Exam alert and oriented x 3 Airway Submandibular: within normal limits Cervical ROM: within normal limits Mallampati: Class II Dentition: full History/ROS No significant history except as noted Anesthetic Plan ASA status: 2 Anesthesia: Anesthesia Evaluation and Regional (specify below) Risk of > 500 ml blood loss (7ml/kg in children): Yes, adequate IV access and fluids planned Medications/Allergies Home Medications ?Medication ?Instructions ?Recorded ?Confirmed ?Last Taken ?Type prenat.vits,esteabn,pbp-fakp-qegco 1 tab PO DAILY 03/23/19 05/07/22 05/05/22 History 1 tab ibuprofen 800 mg tablet 800 mg PO TID #45 tabs 05/08 Unknown Rx Allergies Allergy/AdvReac Type Severity Reaction Status Date / Time cetirizine (From yrte) Allergy Throat Verified 10/06/19 08:50 swelling [facility] Anesthesia Medical History (Updated 05/09/22 @ 00:00 by CONI Crooks) Spontaneous vaginal delivery No pertinent past medical history Denies diabetes, asthma, hypertension, seizures, DVT/PE. PMD: None Surgical History No pertinent past surgical history Family History Grandmother Breast cancer maternal-diagnosed in her 50s Family/Other No problems noted. 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
[2024-10-27] MEDS: ROPivacaine syringe 100 MG/50 ML SYRINGE 10 MG EPIDURAL (15:56)
--- NOTE | 2024-10-27 15:56 | ANES.PROC ---
Anesthesia Procedures Procedure/Date: 10/27/24 Epidural: Time Out Performed: Yes Consents Signed: Procedure Consent Consent: from patient, risks and benefits reviewed and patient agrees to proceed Lumbar Level: L3-L4 Epidural position: sitting Epidural procedure: sterile prep of area, 1% lidocaine to numb the area, 18 g needle, negative for paresthesia passed, test dose given, 1.5% xylocaine 1:200k epi, placed PCEA, no systemic response, sterile dressing applied, L.U.D. no apparent complications and 0.2% Ropiavacaine @ mls/hr (13) Additional Comments: DANYEL at 6, negative heme/CSF with apsiration. taped at 11 at skin. tolerated well. pt states no pain with contractions.
--- NOTE | 2024-10-27 16:49 | PM.OPHPUD ---
Labor & Delivery H&P Update Date of Procedure: October 27, 2024 Date H&P Performed: 10/26/24 Changes to previous documentation: Arrived at hospital making cervical change with consistent contractions. Admission Diagnosis: 24 year old 3 para 2001 at 39 weeks presenting in active labor Planned procedure: Spontaneous vaginal delivery Other information: The patient is a 24-year-old female at 39 weeks who has had an unremarkable . She arrived to the hospital today with contractions and wondering if she had rupture of membranes. She had a gush of fluid and came to the OB department where she was found to be nitrazine negative with a dry vaginal vault. Regardless, she was shad consistently and she was noted to make cervical change. She had consistent care. Her labs are unremarkable. Her blood type is A+. Her antibody screen was negative. She was rubella nonimmune. She was GBS negative. Her glucose screen was negative. The remainder of her infectious disease profile was within normal limits. Related Problem List Diagnoses 1. 39 weeks gestation of : A&P Assessment and plan 1. 39 weeks gestation of : I anticipate routine labor and vaginal delivery. Status: Acute PDMP PDMP Reviewed: Not Reviewed
--- NOTE | 2024-10-27 18:15 | P.PCNOB_ITS ---
Delivery Note: Date of delivery: October 27, 2024 Pre-delivery diagnoses: 1. 24-year-old 3 para 2-0-0-2 a t 39 weeks presenting in active labor Post-delivery diagnoses: Status post spontaneous vaginal delivery with mild shoulder dystocia Procedure: Spontaneous vaginal delivery with shoulder dystocia Delivering Physician: Shreyas Sifuentes Estimated blood loss (mL): 100 Pre-Delivery Course: The patient presented to the hospital in active labor. She is having consistent contractions and making cervical change. An epidural was placed. An amniotomy was performed. She progressed to complete without difficulty. Delivery: DELIVERY: The patient progressed to complete without difficulty. She delivered a male with a weight of 9 pounds 8 ounces with Apgars of 7, 9. The baby was delivered from the YA position. After delivery the head, shoulder dystocia was noted. Ayala, suprapubic pressure, and a wood screw maneuver was applied with limited success. Attention was then turned to the posterior shoulder which was then delivered. At that point the baby was then completely delivered without difficulty. The baby was then placed on the mother's abdomen. The patient's mouth and nose were suctioned. Thick meconium was noted. The cord was then clamped and cut. A nuchal cord was noted. The baby was delivered through the nuchal cord. Thick meconium was noted. The placenta and 3 vessel cord were delivered intact shortly thereafter. The perineum and vaginal vault were carefully examined. A superficial midline anterior tear was noted. Both the mother and the baby were in stable condition. Post-Delivery Status: Good History History History 3 Term 3 0 Miscarriages/Ectopic 0 Living Children 3 A&P Assessment and plan 1. 39 weeks gestation of : I anticipate routine care 2. Vaginal delivery: 3. Shoulder dystocia during labor and delivery: PDMP PDMP Reviewed: Not Reviewed Coding Level of Care Code Acute Code for Chg Fwd Diagnoses 39 weeks gestation of Z3A.39 Vaginal delivery O80 Shoulder dystocia during labor and delivery O66.0
[2024-10-28 00:06] VITALS: BP 115/65; PULSE 81; RESP 16; TEMP 36.8; O2SAT 96
[2024-10-28 02:13] VITALS: BP 127/72; PULSE 83; RESP 17; O2SAT 99
[2024-10-28 04:27] VITALS: BP 110/63; PULSE 83; RESP 16; TEMP 36.8; O2SAT 96
[2024-10-28 05:51] LABS: Hematocrit 26.8 % (36-47); Hemoglobin 8.80 g/dL (11.27-16.99); Mean Corpuscular HGB Conc 32.8 g/dL (30-55); Mean Corpuscular Hemoglobin 27.4 pg (27-33); Mean Corpuscular Volume 83.5 fl (85-98); Platelet Count 294 10^3/cmm (157-399); Red Blood Count 3.21 10^6/uL (3.85-5.65); White Blood Count 13.12 10^3/uL (3.29-11.43)
--- NOTE | 2024-10-28 06:50 | P.DS_ITS ---
Discharge Providers CLAY PRESS OPERATOR Date of Admission: 10/27/24 14:26 Date of Discharge: 10/28/24 Attending Provider at Admission: Shreyas Sifuentes MD Attending Provider at Discharge: Shreyas Sifuentes MD Primary Care Provider: Shreyas Sifuentes MD Diagnoses at Discharge Discharge Diagnosis 1. 39 weeks gestation of : 2. Vaginal delivery: 3. Shoulder dystocia during labor and delivery: Reason for Visit Reason for Visit: poss ROM Hospital Course Hospital Course The patient presented to the hospital on the day of delivery having regular contractions. An epidural was placed. She then progressed to complete and had a vaginal delivery of a LGA baby. The delivery was complicated by shoulder dy stocia which resolved with appropriate intervention. Thick meconium was also noted. The remainder of her hospital stay was unremarkable. Her bleeding was within normal limits. Her pain was well-controlled. Information Peripartum Data: Delivery Method: Vaginal Physical Exam Narrative: The patient is alert. She appears comfortable. Her heart has a regular rate and rhythm with no murmurs appreciated. Lungs are clear to auscultation bilaterally. Her fundus is firm and below the umbilicus. Urinary Catheter Management: Felton: Cath Placed During This Visit: yes Urinary Catheter Date of Insertion: 10/27/24 Urinary Catheter Time of Insertion: 16:02 History History History 3 Term 3 0 Miscarriages/Ectopic 0 Living Children 3 Discharge Data Studies Completed and Pending Laboratory Results WBC 13.12 10^3/uL (3.29-11.43) H 10/28/24 05:40 RBC 3.21 10^6/uL (3.85-5.65) L 10/28/24 05:40 Hgb 8.80 g/dL (11.27-16.99) L 10/28/24 05:40 Hct 26.8 % (36-47) L 10/28/24 05:40 MCV 83.5 fl (85-98) L 10/28/24 05:40 MCH 27.4 pg (27-33) 10/28/24 05:40 MCHC 32.8 g/dL (30-55) 10/28/24 05:40 RDW 13.0 % (12.1-15.1) 10/28/24 05:40 Plt Count 294 10^3/cmm (157-399) 10/28/24 05:40 MPV 9.0 fL (7.4-10.4) 10/28/24 05:40 Neut % (Auto) 80.2 % 10/27/24 14:40 Lymph % (Auto) 11.9 % 10/27/24 14:40 Boyle % (Auto) 6.1 % 10/27/24 14:40 Eos % (Auto) 0.5 % 10/27/24 14:40 Baso % (Auto) 0.4 % 10/27/24 14:40 Neut # (Auto) 13.44 10^3/uL (1.8-7.7) H 10/27/24 14:40 Lymph # (Auto) 2.0 10^3/uL (0.8-4.8) 10/27/24 14:40 Boyle # (Auto) 1.0 10^3/uL (0.2-0.9) H 10/27/24 14:40 Eos # (Auto) 0.1 10^3/uL (0.0-0.8) 10/27/24 14:40 Baso # (Auto) 0.1 10^3/uL (0.0-0.1) 10/27/24 14:40 Nucleated RBC % (auto) 0 % 10/27/24 14:40 Nucleated RBCs # 0.0 /100WBC 10/27/24 14:40 Fluid pH (paper) Negative 10/27/24 12:42 Blood Type A Positive 10/27/24 14:40 Rho(D) Type Rh positive 10/27/24 14:40 Antibody Screen Negative 10/27/24 14:40 Vitals Last Vital Signs Temp 98.3 F 10/28/24 04:27 Pulse 83 10/28/24 04:27 Resp 16 10/28/24 04:27 BP 110/63 10/28/24 04:27 Pulse Ox 96 10/28/24 04:27 O2 Del Method Room Air 10/28/24 04:27 Results Labs OB ([facility]): Blood Type A Positive 10/27/24 Antibody Screen Negative 10/27/24 Hct, (36-47) 26.8 % L Today Hgb, (11.27-16.99) 8.80 g/dL L Today Rho(D) Type Rh positive 10/27/24 Plt Count, (157-399) 294 10^3/cmm Today Discharge Plan Discharge Patient Disposition: Home Condition: Stable Prescriptions: Continued prenat.vits,esteban,bzl-eltr-huxiu Tablet 1 tab PO DAILY ibuprofen 800 mg Tablet 800 mg PO TID Qty: 45 0RF Discharge Order = DC NOW: Discharge Order (Routine); Ordered 10/28/24 Ordered By: Shreyas Sifuentes Referrals: Shreyas Sifuentes MD [Primary Care Provider, [facility]] - 6 Weeks Discharge Diet: Usual diet Discharge Activity: Limit activity as instructed Patient Instructions: Depression (DC), Opioid Safety (DC), Preeclampsia and Eclampsia After Delivery (GEN), Hemorrhage (DC), OB Discharge Report, OB Food/Drug Interaction Guide, OB Care at Home, Opioid Safety, OB Vaginal Deliveries, Patient Portal & Al Instructions, Abnormal Bleeding Discharge Attestations CLAY PRESS OPERATOR Time Spent in Discharge Care*: less than 30 min Coding Level of Care Code Acute Code for Chg Fwd Diagnoses 39 weeks gestation of Z3A.39 Vaginal delivery O80 Shoulder dystocia during labor and delivery O66.0
[2024-10-28] MEDS: PRENATAL VIT NO.130/IRON/FOLIC 1 EACH TABLET PO (09:00)
--- NOTE | 2024-10-28 14:01 | ANE.PACU2 ---
Inpatient post-anesthesia follow up: Airway intact: Yes Vital signs: Temperature 97.8 F Pulse Rate 82 Respiratory Rate 17 Blood Pressure 127/87 Pulse Oximetry 97 Oxygen Delivery Me thod Room Air Oxygen Flow Rate Fraction of Inspir ed Oxygen Hydration adequate: Yes Nausea and vomiting: No Pain level: 1 Mental status: Baseline Epidural Start/End: Epidural Start Date: 10/27/24 Epidural Start Time: 15:30 Epidural End Date: 10/27/24 Epidural End Time: 18:15
[2024-10-28 20:17] VITALS: BP 127/87; PULSE 82; RESP 16; RESP 17; TEMP 36.6; O2SAT 97
== END 2024-10-28 20:30 | disposition home or self-care (01) | DRG 807 ==
LOC: OPOB 14:26 → OBGYN 14:26
PROVIDERS: Admitting Provider Family Medicine; PCP Family Medicine; Visit Provider Family Medicine
DX: O77.0 Labor and delivery complicated by meconium in amniotic fluid (principal); Z37.0 Single live birth; O66.0 Obstructed labor due to shoulder dystocia; O69.1XX0 Labor and delivery complicated by cord around neck, with compression, not applicable or unspecified; Z3A.39 39 weeks gestation of pregnancy
CPT/HCPCS: 36415; 51702; 59025; 59409; 83986; 85025; 85027; 86850; 86900; 99211; J2795; J7120; J7121; J9999